=== PATIENT | female | born 1950 | race Caucasian/White ===

== ENCOUNTER 2016-12-05 09:54 | Outpatient (CLI) | payer MEDICARE, OTHER | END 2016-12-05 09:55 | disposition home or self-care (01) | DX: Z12.31 Encounter for screening mammogram for malignant neoplasm of breast (principal); Z85.3 Personal history of malignant neoplasm of breast ==

== ENCOUNTER 2017-05-02 11:20 | Day surgery (SDC) | payer MEDICARE, OTHER ==
[2017-05-02] MEDS ORDERED: LACTATED RINGERS 1,000 ML IV ONE (11:28)
[2017-05-02] MEDS ORDERED: fentaNYL 100 MCG/2 ML VIAL IVP ONE (13:00)
[2017-05-02] MEDS ORDERED: MIDAZOLAM 2 MG/2 ML VIAL IVP ONE (13:00)
[2017-05-02 14:34] VITALS: BP 138/76
== END 2017-05-02 11:21 | disposition home or self-care (01) ==
LOC: SDS 11:20
PROVIDERS: ATTEND Surgery
PROC: 0DBL8ZX Excision of Transverse Colon, Via Natural or Artificial Opening Endoscopic, Diagnostic (ICD-10-PCS; principal; 2017-05-02 12:30)
DX: Z12.11 Encounter for screening for malignant neoplasm of colon (principal); D12.3 Benign neoplasm of transverse colon; K64.8 Other hemorrhoids; E03.9 Hypothyroidism, unspecified
CPT/HCPCS: 45380; J7120

== ENCOUNTER 2019-08-16 19:42 | Emergency (ER) | payer MEDICARE, BC ==
[2019-08-16 19:52] VITALS: BP 122/60
--- NOTE | 2019-08-16 20:00 | ED Physician Documentation ---
PD HPI URI - Stated complaint Stated Complaint: FEVER,COUGH - Chief complaint Chief Complaint: Fever - History obtained from History obtained from: Patient - History of Present Illness Timing - onset: How many days ago (2) Timing duration: Days (2) Timing details: Abrupt onset, Still present Associated symptoms: Fever (Up to 103), Chills, Sweats, Nasal congestion, Productive cough (mostly clear with tinge of pink) Contributing factors: Travel (Arrived from [place] several days ago so presumed she got ill on the plane or the airport. She did have a flu shot this year.). No: Sick contact, Unimmunized, COPD / asthma Improves by: Medication (tylenol helps with fevers.) Worsened by: Activity Similar symptoms before: Has not had sx before Recently seen: Not recently seen Review of Systems Constitutional: reports: Fever, Chills, Myalgias, Fatigue Ears: reports: Ear pain (left) Nose: reports: Congestion Throat: denies: Sore throat Cardiac: denies: Chest pain / pressure Respiratory: reports: Dyspnea, Cough. denies: Wheezing GI: reports: Constipation. denies: Abdominal Pain, Vomiting, Diarrhea : denies: Dysuria Skin: denies: Rash Neurologic: denies: Altered mental status, Headache PD PAST MEDICAL HISTORY - Past Medical History Cardiovascular: None Respiratory: None Endocrine/Autoimmune: HyPOthyroidism GI: None : None HEENT: None Psych: None Musculoskeletal: Osteoarthritis Derm: None - Past Surgical History Ortho: Hip replacement, Knee replacement /[employer]: Tubal ligation, Other HEENT: Tonsil/Adenoidectomy - Present Medications Home Medications: Ambulatory Orders Medication Instructions Recorded Confirmed Levothyroxine [Synthroid] 1 tab PO DAILY 05/01/17 05/02/17 Atorvastatin [Lipitor] 08/16/19 Benzonatate [Tessalon Perle] 100 mg PO TID PRN #30 capsule 08/16/19 DULoxetine [Cymbalta] 08/16/19 dexAMETHasone [Decadron] 4 mg PO DAILY #7 tablet 08/16/19 - Allergies Allergies/Adverse Reactions: Allergies Allergy/AdvReac Type Severity Reaction Status Date / Time codeine AdvReac Nausea Verified 08/16/19 19:52 PD ED PE NORMAL - Vitals Vital signs reviewed: Yes - General General: Alert and oriented X 3, No acute distress, Well developed/nourished, Other (sweaty) - HEENT HEENT: Pharynx benign. No: Ears normal (mild fluid behind left TM; no redness. ) - Neck Neck: Supple, no meningeal sign, No adenopathy - Cardiac Cardiac: RRR, No murmur - Respiratory Respiratory: Clear bilaterally - Derm Derm: Normal color, Warm and dry - Extremities Extremities: No tenderness to palpate, Normal ROM s pain, No edema, No calf tenderness / cord - Neuro Neuro: Alert and oriented X 3, No motor deficit, Normal speech Results - Vitals Vitals: Vital Signs - 24 hr 08/16/19 19:45 Temperature 37.0 C Heart Rate 98 Respiratory 14 Rate Blood Pressure 122/60 O2 Saturation 95 Oxygen O2 Source Room air PD MEDICAL DECISION MAKING - ED course Complexity details: considered differential (Sounds flulike viral URI without bacterial sounding component.), d/w patient Departure - Departure Disposition: 01 Home, Self Care Clinical Impression: Upper respiratory infection Qualifiers: URI type: unspecified URI Qualified Code(s): J06.9 - Acute upper respiratory infection, unspecified Condition: Stable Record reviewed to determine appropriate education?: Yes Instructions: ED Upper Resp Infec No Abx Tx Prescriptions: Benzonatate [Tessalon Perle] 100 mg PO TID PRN #30 capsule PRN Reason: Cough dexAMETHasone [Decadron] 4 mg PO DAILY #7 tablet Comments: Stay well-hydrated. Tylenol or ibuprofen for fevers and pains. Use the benzonatate every 6 hours if needed for cough suppression. Take the Decadron steroid anti-inflammatory daily for the next week to reduce inflammation through the bronchials and airway and sinuses. This will decrease coughing and symp toms generally. Your lungs sound clear and your oxygenation level is good. This sounds like a viral illness and likely will be about 5 to 7 days of illness. The symptoms should be improved with the above medications. Discharge Date/Time: 08/16/19 20:28
[2019-08-16] MEDS ORDERED: DEXAMETHASONE 10 MG/ML VIAL PO STA (20:18)
[2019-08-16] MEDS ORDERED: IBUPROFEN 600 MG TABLET PO STA (20:18)
[2019-08-16] MEDS ORDERED: BENZONATATE 100 MG CAPSULE PO STA (20:18)
[2019-08-16] MEDS ORDERED: CHERRY SYRUP 10 ML UDC PO ONE (20:18)
[2019-08-16] MEDS ORDERED: CETIRIZINE 10 MG TABLET PO STA (20:19)
== END 2019-08-16 20:28 | disposition home or self-care (01) ==
LOC: ED 19:42
DX: J06.9 Acute upper respiratory infection, unspecified (principal)
CPT/HCPCS: 99282; 99284; A9270